=== PATIENT | female | born 1950 | race Caucasian/White ===

== ENCOUNTER → 2016-10-28 | Outpatient (CLI) | payer OTHER ==
--- NOTE | 2016-10-28 19:09 | DX ---
Right knee, 3 views History: Bilateral knee pain. Findings: Mild medial tibiofemoral joint space narrowing with small medial femoral condyle and tibia l plateau osteophytes. No fracture or dislocation. No joint effusion. Lateral patellar tilt with severe lateral patellofemoral joint space narrowing with almost complete l oss of joint space laterally, as well as lateral trochanter notch and patellar osteophytes. Impression: 1. Lateral patellar tilt with severe lateral patellofemoral joint space narrowing. 2. Mild medial tibiofemoral osteoarthritis also.
--- NOTE | 2016-10-28 19:10 | DX ---
Left knee, 3 views History: Pain. Findings: Moderate lateral patellofemoral joint space narrowing with lateral patellar tilt, trochlear subchondral cystic erosions, lateral trochlear and lateral patellar osteophytes. Mild medial tibiofe moral joint space narrowing with medial femoral condyle and tibial plateau osteophytes. No definite j oint effusion. Impression: 1. Moderate lateral patellofemoral osteoarthritis with lateral patellar tilt and joint space narrowin g. 2. Mild medial tibiofemoral osteoarthritis.
== END ==
LOC: CIMAGING 16:39
PROVIDERS: ATTEND Family Medicine
DX: M25.562 Pain in left knee (principal); M25.561 Pain in right knee; M17.0 Bilateral primary osteoarthritis of knee
CPT/HCPCS: 73562-PO

== ENCOUNTER → 2017-12-28 | Outpatient (CLI) | payer OTHER | LOC: FIMAGING 12:09 | PROVIDERS: ATTEND Orthopaedic Surgery | DX: Z01.818 Encounter for other preprocedural examination (principal); M17.12 Unilateral primary osteoarthritis, left knee ==

== ENCOUNTER 2017-12-30 11:23 | Inpatient (IN) | payer OTHER ==
--- NOTE | 2017-12-30 07:18 | PDHPUP ---
History & Physical Update H&P update statement: This history and physical update is based on an assessment of the patient which was completed after admission or registration (within 24 hours), but prior to the surgery/procedure. H&P update: H&P reviewed & patient examined, no change in patient's condition since H&P completed
[~2017-12-30 11:23] MED LIST: BUPI/epINEPH/KETOROLAC IU ONE; ROPIVACAINE 0.2% 80 MG, EPINEPHrine 0.2 MG, KETOROLAC TROMETHAMINE 30 MG in SYRINGE 0 ML IU ONE; TRANEXAMIC ACID 3,000 MG in NS (SYRINGE) 50 ML IRR ONE; TRANEXAMIC ACID 3,000 MG/50 ML BAG IRR ONE
[2017-12-30] MEDS ORDERED: DEXAMETHASONE 4 MG/ML VIAL IVP ONE (11:42)
[2017-12-30] MEDS ORDERED: ACETAMINOPHEN 325 MG TAB PO ONE (11:42)
[2017-12-30] MEDS ORDERED: LR 1,000 ML IV ONE (11:42)
[2017-12-30] MEDS ORDERED: ceFAZolin 2 GM/SWFI 2 GM/20 ML SYR IVP ONE (11:42)
[2017-12-30] MEDS ORDERED: FAMOTIDINE 20 MG TAB PO ONE (11:42)
[2017-12-30] MEDS ORDERED: LIDOCAINE 1% 2 ML INJ ID PRN (11:42)
[2017-12-30] MEDS: GABAPENTIN 300 MG CAP PO PRN ×2 (12:25→23:06)
--- NOTE | 2017-12-30 13:13 | PDANEPAE ---
ANE Past Medical History - Cardiovascular History Hx Hypertension: Yes Hx Arrhythmias: No Hx Chest Pain: No Hx Coronary Artery / Peripheral Vascular Disease: No Hx CHF / Valvular Disease: No Hx Palpitations: No - Pulmonary History Hx COPD: No Hx Asthma/Reactive Airway Disease: No Hx Recent Upper Respiratory Infection: No Hx Oxygen in Use at Home: No Hx Sleep Apnea: No Sleep Apnea Screening Result - Last Documented: Negative - Neurologic History Hx Cerebrovascular Accident: No Hx Seizures: No Hx Dementia: No - Endocrine History Hx Diabetes: Yes Endocrine History Comment: NIDDM with peripheral neuropathy - Renal History Hx Renal Disorders: No - Liver History Hx Hepatic Disorders: No - Neurological & Psychiatric Hx Hx Neurological and Psychiatric Disorders: Yes Neurological / Psychiatric History Comment: neuropathy in feet - Cancer History Hx Cancer: No - Congenital Disorder History Hx Congenital Disorders: No - GI History GERD: moderate Hx Gastrointestinal Disorders: Yes Gastrointestinal History Comment: reflux, gerd - Other Health History Other Health History: cataract left. bruises easily. very small veins - Chronic Pain History Chronic Pain: No - Surgical History Prior Surgeries: none ANE Review of Systems Review of Systems: - Exercise capacity METS (RN): 4 METS - Systems Constitutional: Reports: no symptoms Cardiac: Reports: no symptoms Respiratory: Reports: no symptoms ANE Patient History - Allergies Allergies/Adverse Reactions: No Known Allergies Allergy (Verified 12/11/17 10:01) - Home Medications Home Medications: Atorvastatin Calcium [Lipitor 40 mg (*)] 40 mg PO DAILY 12/11/17 [Last Taken Unknown] Cholecalciferol Vit D3 [Vitamin D3 2000 units tab (OTC)] 2,000 units PO BID [Last Taken Unknown] Gabapentin [Neurontin 300 MG (*)] 600 mg PO TIDMEAL PRN 12/11/17 [Last Taken Unknown] Herbals/Supplements -Info Only 1 ea PO DAILY 12/11/17 [Last Taken Unknown] Lisinopril [Zestril 2.5 mg (*)] 2.5 mg PO DAILY 12/11/17 [Last Taken Unknown] Multivitamins [Multivitamin (*)] 1 each PO DAILY 12/11/17 [Last Taken Unknown] [place]-3 Fatty Acids [Fish Oil 1000 mg (*)] 1,000 mg PO BID 12/11/17 [Last Taken Unknown] Omeprazole 20 mg PO DAILY 12/11/17 [Last Taken Unknown] metFORMIN HCL [Glucophage 500 mg (*)] 1,000 mg PO BIDMEAL 12/11/17 [Last Taken Unknown] - NPO status NPO Since - Liquids (Date): 12/30/17 NPO Since - Liquids (Time): 10:00 NPO Since - Solids (Date): 12/30/17 NPO Since - Solids (Time): 23:30 - Anes Hx Anes Hx: no prior problems - Smoking Hx Smoking Status: Former smoker - Alcohol Use Alcohol Use: Rarely - Family Anes Hx Family Hx Anesthesia Complications: none ANE Labs/Vital Signs - Vital Signs Blood Pressure: 159/86 Heart Rate: 66 Respiratory Rate: 18 O2 Sat (%): 92 Height: 165.1 cm Weight: 74.389 kg ANE Physical Exam - Airway Neck exam: FROM Mallampati Score: Class 2 Mouth exam: normal dental/mouth exam - Pulmonary Pulmonary: clear to auscultation - Cardiovascular Cardiovascular: regular rate and rhythym - ASA Status ASA Status: III ANE Anesthesia Plan Anesthesia Plan: spinal Regional Anesthesia: adductor canal FNB
[2017-12-30] MEDS ORDERED: fentaNYL 100 MCG/2 ML INJ ONE (13:23)
[2017-12-30] MEDS ORDERED: PROPOFOL/EMULSION 500 MG/50 ML BOTTLE IV ONE (13:29)
[2017-12-30] MEDS ORDERED: ROPIVACAINE HCL 150 MG/30 ML INJ ONE (13:35)
[2017-12-30] MEDS ORDERED: ALBUTEROL 3 ML DEYVIAL IH PRN (14:21)
[2017-12-30] MEDS ORDERED: OXYCODONE/APAP 5/325 TAB PO PRN (14:21)
[2017-12-30] MEDS ORDERED: ACETAMINOPHEN 500 MG TAB PO PRN (14:21)
[2017-12-30] MEDS ORDERED: fentaNYL 100 MCG/2 ML INJ IVP PRN (14:21)
[2017-12-30] MEDS ORDERED: LR 500 ML IV PRN (14:21)
[2017-12-30] MEDS ORDERED: ONDANSETRON 4 MG/2 ML VIAL IVP PRN ×2 (14:21→14:47)
[2017-12-30] MEDS ORDERED: NALOXONE HCL 0.4 MG/ML INJ IVP PRN (14:21)
[2017-12-30] MEDS ORDERED: MAGNESIUM HYDROXIDE 30 ML UDCUP PO PRN (14:47)
[2017-12-30] MEDS ORDERED: diphenhydrAMINE 25 MG CAP PO PRN (14:47)
[2017-12-30] MEDS ORDERED: POLYETHYLENE GLYCOL 3350 17 GM PKT PO PRN (14:47)
[2017-12-30] MEDS ORDERED: PROMETHAZINE HCL 25 MG/ML INJ IVP PRN (14:47)
[2017-12-30] MEDS ORDERED: PROMETHAZINE HCL 25 MG SUPPR PR PRN (14:47)
[2017-12-30] MEDS ORDERED: METOCLOPRAMIDE 10 MG/2 ML VIAL IVP PRN (14:47)
[2017-12-30] MEDS ORDERED: LACTULOSE 20 GM/30 ML UDCUP PO PRN (14:47)
[2017-12-30] MEDS ORDERED: BISACODYL 10 MG SUPP PR PRN (14:47)
[2017-12-30] MEDS ORDERED: TEMAZEPAM 15 MG CAP PO PRN (14:47)
[2017-12-30] MEDS ORDERED: DIPHENOXYLATE/ATROPINE LOMOTIL 1 TAB PO PRN (14:47)
[2017-12-30] MEDS ORDERED: ONDANSETRON DISINTEGRATING 4 MG TAB PO PRN (14:47)
--- NOTE | 2017-12-30 14:47 | POSTOPPROG ---
Post Op Note Date of Operation: 12/30/17 Surgeon: Natividad Cabrera Remedial Project Manager: steven cabrera Anesthesiologist: dr. españa Anesthesia: Spinal, Other (Specify) (adductor canal block) Pre-op Diagnosis: left knee OA Post-op Diagnosis: same Indication: left knee pain Procedure: L TKA robot assisted Findings: severe knee OA Inf/Abcess present in the surg proc area at time of surgery?: No EBL: 50-100
--- NOTE | 2017-12-30 14:59 | POSTANESTH ---
Post Anesthetic Evaluation Cardiovascular Status: Normal, Stable Respiratory Status: Normal, Stable Level of Consciousness/Mental Status: Can Participate in Eval, Mildly Sleepy, Arousable Pain Control: Adequate, Prn Tx Ordered Nausea/Vomiting Control: Adequate, Prn Tx Ordered Complications Possibly Related to Anesthesia: None Noted (Moving LE, but still insensate from SAB. L adductor canal block placed with US guidance. See anesthesia record for more details.)
[2017-12-30] MEDS ORDERED: LR 1,000 ML IV SCH (15:00)
[2017-12-30] MEDS: ACETAMINOPHEN 325 MG TAB PO SCH ×2 (18:15→23:06)
[2017-12-30] MEDS ORDERED: D50W 25 GM/50 ML VIAL IVP PRN (21:25)
[2017-12-30] MEDS: ASPIRIN 81 MG CHEWABLE TAB PO SCH (21:32)
[2017-12-30] MEDS: SENNOSIDES/DOCUSATE SODIUM TAB PO SCH (21:32)
[2017-12-30] MEDS: metFORMIN HCL 500 MG TAB PO SCH (21:32)
[2017-12-30] MEDS: ceFAZolin 2 GM/SWFI 2 GM/20 ML SYR IVP SCH (21:32)
[2017-12-30] MEDS: oxyCODONE IR 5 MG TAB PO PRN (21:33)
[2017-12-30] MEDS: FAMOTIDINE 20 MG TAB PO SCH (21:33)
[2017-12-30] MEDS ORDERED: ceFAZolin 2 GM/DEXTROSE 100 ML IV SCH (22:00)
[2017-12-31] MEDS: ACETAMINOPHEN 325 MG TAB PO SCH ×3 (05:23→17:30)
[2017-12-31] MEDS: ceFAZolin 2 GM/SWFI 2 GM/20 ML SYR IVP SCH (05:24)
[2017-12-31 07:13] VITALS: RESP 16
[2017-12-31] MEDS: INSULIN REGULAR HUMAN 100 UNIT/ML UNIT SC SCH ×4 (08:15→22:33)
[2017-12-31] MEDS: metFORMIN HCL 500 MG TAB PO SCH ×2 (08:29→17:31)
[2017-12-31] MEDS: ATORVASTATIN CALCIUM 40 MG TAB PO SCH (08:30)
[2017-12-31] MEDS: ASPIRIN 81 MG CHEWABLE TAB PO SCH ×2 (08:30→20:49)
[2017-12-31] MEDS: PANTOPRAZOLE SODIUM 40 MG TAB PO SCH (08:31)
[2017-12-31] MEDS: oxyCODONE IR 5 MG TAB PO PRN ×3 (08:31→22:32)
[2017-12-31] MEDS: SENNOSIDES/DOCUSATE SODIUM TAB PO SCH ×2 (08:31→20:49)
[2017-12-31] MEDS: FAMOTIDINE 20 MG TAB PO SCH ×3 (08:31→20:49)
[2017-12-31] MEDS: GABAPENTIN 300 MG CAP PO PRN ×3 (08:50→22:34)
[2017-12-31] MEDS ORDERED: NON-FORMULARY NEW DRUG (Omeprazole [Omeprazole] 20 MG) PO SCH (09:00)
[2017-12-31] MEDS: LISINOPRIL 2.5 MG TAB PO SCH (09:24)
--- NOTE | 2017-12-31 17:32 | PDMN ---
Medical Necessity Medical necessity: Patient transitioned to inpatient stay per [facility] S-700 Knee Arthroplasty, Total (extended stay criteria: LOS will be > 2 midnights for ongoing PT needs as patient becomes diaphoretic and lightheaded w/PT and is unsafe for home DC per PT.)
--- NOTE | 2017-12-31 19:58 | GOP ---
[f rep st] OPERATIVE REPORT DATE OF OPERATION: 12/30/2017 SURGEON: Musa Blair MD SAND ANALYST: Porsha Blair, BECKY ANESTHESIA: Spinal. PREOPERATIVE DIAGNOSIS: Left knee osteoarthritis. POSTOPERATIVE DIAGNOSIS: Left knee osteoarthritis. PROCEDURE PERFORMED: Left total knee arthroplasty with computer navigation, robotic assist. FINDINGS: ESTIMATED BLOOD LOSS: 30 cc. INDICATIONS: The patient is a 67-year-old female with severe and progressive pain and deformity of t he left knee unresponsive to conservative care. The risks and benefits of surgical intervention were explained in detail. DESCRIPTION OF PROCEDURE: The patient was brought to the operative room and placed on the table in t he supine position. Spinal anesthesia was induced without difficulty. A pneumatic tourniquet was appl ied about the left proximal thigh, and the leg was prepped and draped in a sterile fashion. The leg h older was applied. After exsanguination by elevation the tourniquet was inflated to 50 mmHg. Incision was made anterior medial from the tibial tuberosity to a point 2 cm proximal to the superior pole of the patella revealed type II VMO pathology severe lateral patellofemoral osteoarthritis. Med ial parapatellar arthrotomy was carried out from the superior pole of the patella and posteriorly in line with the fibers of the Type II VMO. The medial collateral ligament was elevated and the infrapat ellar fat pad was resected. The patella was everted and the articular surface was excised. A 29 mm patellar button was placed. Attention was turned first to the distal aspect of the femur. After exposure of the femur, 2 half pi ns were placed for fixation of the femoral array. In a similar fashion, 2 pins were placed anteromed ial on the tibia for fixation of the tibial array. External land marking and registration of the hip center was performed without difficulty. Internal femoral and tibial registration was carried out w ithout difficulty and the femoral and tibial checkpoints were placed and verified for accuracy. Attention was turned to the femur. The foot print for the size 2 femoral component was cut with the saw using the [employer] robotic system and verified for accuracy against the CT based plan. In a similar f ashion, the saw was used to cut the footprint for the size 2 tibial component using the [employer] system an d verified for accuracy against the CT based plan. The tibial articular surface was excised without d ifficulty, followed by the intercondylar box cut. The knee was extended and the remnants of the medial and lateral meniscus were excised. The posterior capsule was injected with ropivacaine, epinephrine and Toradol. A size 2 tibial tray was positioned . Trial reduction was then carried out. There was excellent range of motion, alignment, and stability using the 2 x 11 mm polyethylene. All trials were then removed. The joint was thoroughly irrigated and carefully dried. The press-fit c omponents were implanted. The permanent 2 x 11 mm polyethylene was placed without difficulty. The tourniquet was deflated and all bleeders were coagulated. The wound was thoroughly irrigated and closed using interrupted sutures of 2-0 Vicryl for the joint capsule. The subcu was closed with 3-0 V icryl and the skin with 4-0 Monocryl. Dermabond and Steri-Strips were applied followed by a compress markos dressing. The patient was then moved from the operating room to the recovery room in good conditi on, having tolerated the procedure well. /[id number]/MODL
[2017-12-31] MEDS: CYCLOBENZAPRINE 10 MG TAB PO PRN (20:59)
[2018-01-01] MEDS: oxyCODONE IR 5 MG TAB PO PRN ×4 (00:02→12:27)
[2018-01-01] MEDS: ACETAMINOPHEN 325 MG TAB PO SCH ×3 (00:03→12:26)
[2018-01-01] MEDS: metFORMIN HCL 500 MG TAB PO SCH (08:24)
[2018-01-01] MEDS: ASPIRIN 81 MG CHEWABLE TAB PO SCH (08:24)
[2018-01-01] MEDS: SENNOSIDES/DOCUSATE SODIUM TAB PO SCH (08:26)
[2018-01-01] MEDS: LISINOPRIL 2.5 MG TAB PO SCH (08:26)
[2018-01-01] MEDS: ATORVASTATIN CALCIUM 40 MG TAB PO SCH (08:26)
[2018-01-01] MEDS: PANTOPRAZOLE SODIUM 40 MG TAB PO SCH (08:26)
[2018-01-01] MEDS: FAMOTIDINE 20 MG TAB PO SCH (08:26)
[2018-01-01] MEDS: INSULIN REGULAR HUMAN 100 UNIT/ML UNIT SC SCH ×2 (08:30→12:22)
[2018-01-01] MEDS: GABAPENTIN 300 MG CAP PO PRN (09:15)
[2018-01-01 10:33] VITALS: O2SAT 97
[2018-01-01 11:34] VITALS: BP 153/73; PULSE 59; TEMP 98.1
[2018-01-01] MEDS: CYCLOBENZAPRINE 10 MG TAB PO PRN (12:27)
--- NOTE | 2018-01-01 15:01 | SOAPPROG ---
SOAP Progress Note Assessment/Plan: Assessment: Patient is doing well today, POD 2 s/p TKA lightheadedness:improved pain:controlled on oral pain meds DVT ppx: aspirin BID D/c planning: d/c to home today Plan: 01/01/18 14:58 Subjective: patient is doing well Objective: Vital Signs Temp Pulse Resp BP Pulse Ox 36.7 C 59 L 16 153/73 H 97 01/01/18 11:32 01/01/18 11:32 01/01/18 11:32 01/01/18 11:32 01/01/18 11:32 Laboratory Results 01/01/18 04:25 12/31/17 01/01/18 01/02/18 05:59 05:59 05:59 Intake Total 2150 1300 500 Output Total 1580 2750 600 Balance 570 -1450 -100 incision dressing is clean and dry ,NVI, +pf/df ICD10 Worksheet Patient Problems: Problems Problem Status Onset Primary localized osteoarthritis of left knee Acute
--- NOTE | 2018-01-02 11:04 | GDS ---
[f rep st] DISCHARGE SUMMARY ADMISSION DIAGNOSIS: Left knee osteoarthritis. DISCHARGE DIAGNOSIS: Left knee osteoarthritis. PROCEDURE: Left total knee arthroplasty. VTE PROPHYLAXIS: Recommend aspirin twice daily for 4 weeks. BRIEF DESCRIPTION OF HOSPITAL STAY: Patient was admitted for an elective joint arthroplasty. The pa tient tolerated the procedure well and has passed physical therapy. The patient was given appropriat e antibiotic prophylaxis and venous thromboembolism prophylaxis. The patient's pain was well control led on oral pain medication, patient was holding down food, and had urinated. Decision was made to d ischarge the patient. The patient was given post-operative prescriptions pre-operatively. PLAN: Follow up a scheduled on January 18 at 9:45 a.m. /[id number]/MODL
== END 2018-01-01 15:42 | disposition home or self-care (01) | DRG 470 ==
LOC: F3N 11:23 → INTOOBSV 11:23 → F3N 16:45 → OBSVTOIN 12-31 17:00
PROVIDERS: ADMIT Orthopaedic Surgery; ATTEND Orthopaedic Surgery
PROC: 0SRD0JZ Replacement of Left Knee Joint with Synthetic Substitute, Open Approach (ICD-10-PCS; principal; 2017-12-30 13:15)
PROC: 8E0YXBZ Computer Assisted Procedure of Lower Extremity (ICD-10-PCS; principal; 2017-12-30 13:15)
PROC: 8E0Y0CZ Robotic Assisted Procedure of Lower Extremity, Open Approach (ICD-10-PCS; principal; 2017-12-30 13:15)
DX: M17.12 Unilateral primary osteoarthritis, left knee (principal); I10 Essential (primary) hypertension; E11.43 Type 2 diabetes mellitus with diabetic autonomic (poly)neuropathy; K21.9 Gastro-esophageal reflux disease without esophagitis
CPT/HCPCS: 97116-GP; 97161-GP; 97166-GO; 97535-GO; G0378; G8978-GP-CJ; G8979-GP-CI; G8980-GP-CI; G8987-GO-CI; G8988-GO-CI; G8989-GO-CI; J0171; J0690; J1100; J1815; J1885; J2704; J2795; J3010